=== PATIENT | male | born 1965 | race Caucasian/White ===

== ENCOUNTER 2024-01-27 02:39 | Emergency (ER) | payer MEDICAID ==
[~2024-01-27] VITALS: Ht 167.6 cm; Wt 104.0 kg
[2024-01-27 02:41] VITALS: O2SAT 98
[2024-01-27] MEDS ORDERED: CLONIDINE 0.2MG TABLET PO ONE (02:45)
[2024-01-27] MEDS ORDERED: TRAMADOL 50MG TABLET PO ONE (02:45)
[2024-01-27 03:09] LABS: BASOPHILS % 1.1 % (0.0-2.0); EOSINOPHILS % 2.9 % (0.0-5.0); HEMATOCRIT. 43.8 % (42.0-52.0); HEMOGLOBIN. 15.1 g/dL (14.0-18.0); LYMPHOCYTES % 28.9 % (20.0-50.0); MEAN CORPUSCULAR HEMOGLOBIN 32.1 pg (28.0-32.0); MEAN CORPUSCULAR HGB CONC 34.5 g/dL (31.0-37.0); MEAN CORPUSCULAR VOLUME 93.1 fL (80.0-94.0); MEAN PLATELET VOLUME 7.5 fl (7.4-10.4); MONOCYTES % 9.9 % (2.0-8.0); NEUTROPHILS % 57.2 % (40.0-76.0); PLATELET 285 x1000/uL (130-400); RED BLOOD CELL COUNT 4.71 mill/uL (4.7-6.1); RED CELL DISTRIBUTION WIDTH 14.4 % (11.6-14.6); WHITE BLOOD COUNT 8.9 x1000/uL (4.5-11.0)
[2024-01-27 03:17] LABS: CHLORIDE 102 mEq/L (98-107); POTASSIUM 2.9 mEq/L (3.5-5.1); SODIUM 140 mEq/L (136-145)
[2024-01-27 03:18] LABS: CARBON DIOXIDE 32 mEq/L (21-32)
[2024-01-27 03:23] LABS: CREATININE 0.7 mg/dL (0.6-1.3); GLUCOSE 144 mg/dL (70-105); UREA NITROGEN BLOOD 15 mg/dL (9-23)
[2024-01-27] MEDS: CLONIDINE 0.1MG TABLET PO NR ×2 (03:23→08:27)
[2024-01-27 03:25] LABS: ALANINE AMINOTRANSFERASE 38 IU/L (10-49); ALBUMIN 4.4 g/dL (3.2-4.8); ASPARTATE AMINOTRANSFERASE 31 IU/L (<34); BILIRUBIN TOTAL 0.4 mg/dL (0.1-1.0); PROTEIN TOTAL 7.2 g/dL (6.0-8.3)
[2024-01-27] MEDS: TRAMADOL 50MG TABLET PO NR (03:42)
[2024-01-27] MEDS: ONDANSETRON HCL 4MG/2ML INJ IV ONE (03:44)
[2024-01-27] MEDS ORDERED: POTA-205 MT (05:09)
[2024-01-27 08:21] VITALS: BP 181/94; PULSE 70; RESP 18; TEMP 37.05852; O2SAT 96
[2024-01-27] MEDS: HYDROCHLOROTHIAZIDE 25MG TABLET PO ONE (08:24)
[2024-01-27] MEDS: POTASSIUM CHLORIDE 20MEQ TABLET SR PO NR (08:24)
[2024-01-27] MEDS: CLONIDINE 0.1MG TABLET PO ONE (08:26)
== END 2024-01-27 08:54 | disposition home or self-care (01) ==
LOC: EDBD 02:39 → ER 03:03
DX: I16.0 Hypertensive urgency (principal); E87.6 Hypokalemia; I10 Essential (primary) hypertension; F19.90 Other psychoactive substance use, unspecified, uncomplicated
CPT/HCPCS: 80053; 85025; 36415; 70450; 93005; 96374; 99291; J2405; Z7610 ×2